=== PATIENT | female | born 1990 | race Caucasian/White ===

== ENCOUNTER 2022-10-03 11:36 | Emergency (ER) | payer MEDICAID ==
[2022-10-03 12:08] VITALS: O2SAT 98
[2022-10-03] MEDS ORDERED: TORAdol 30 mg Injection IM ONE (12:24)
[2022-10-03] MEDS ORDERED: TORAdol 30 mg Injection ONE (12:26)
--- NOTE | 2022-10-03 12:50 | ERPHSYRPT ---
- History of Present Illness Time Seen by Provider: 10/03/22 12:23 Source: patient Exam Limitations: no limitations Patient Subjective Stated Complaint: pt reports a short fall on carpeted stairs approx 2200 last night, states she tripped over a dog that was underfoot. rep orts she landed on her tailbone and her right ribs. reports her tailbone is vert sore today. Triage Nursing Assessment: pt is aox3, afebrile, pupils perrl, resps easy and non labored, radial pulses strong and equal, pt ambulatory with no difficulties, pt skin pink warm dry. no obvious injury or deformity noted. Physician History: 31 years old female presented in the ER after she tripped over her dog last night, lost balance and fell on the stairs hitting her left hip and tailbone against the edge of stairs case. Patient also reports hitting her left chest wall but no difficulty breathing and minimal pain there. Pain is mainly in the coccyx area, more with ambulation and better with resting. No difficulty urination. No numbness tingling or weakness of lower extremities. No difficulty movements at the hips. Occurred: yesterday Reason for Fall: lost balance, tripped Injuries/Pain Location: pelvis, lower extremity Loss of Consciousness: no loss of consciousness Quality: sharpness Severity of Pain-Max: moderate Severity of Pain-Current: moderate Modifying Factors: Improves With: immobilization. Worsens With: movement Associated Symptoms (Fall): extremity injury, No ringing in ears, No trouble walking Allergies/Adverse Reactions: No Known Drug Allergies Allergy (Unverified 10/03/22 12:08) Home Medications: Omeprazole Magnesium 40 mg PO DAILY 10/03/22 [History] Hx Tetanus, Diphtheria Vaccination/Date Given: Yes Hx Influenza Vaccination/Date Given: Yes Hx Pneumococcal Vaccination/Date Given: No Immunizations Up to Date: Yes Travel Risk - International Travel Have you traveled outside of the country in past 3 weeks: No - Coronavirus Screening Are you exhibiting any of the following symptoms?: No Close contact with a COVID-19 positive Pt in past 14-21 Days: No - Vaccine Status Have you recieved a Covid-19 vaccination: Yes 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 Anemia - Past Surgical History Past Surgical History: Yes Musculoskeletal: Orthopedic Surgery Other Surgical History: upper GI scope. R index finger surgery. pilondyal cyst removal - Social History Smoking Status: Never smoker Exposure to second hand smoke: No Drug Use: none Patient Lives Alone: No - Female History Hx Last Menstrual Period: 09/14/22 Hx Now: (unkn) - Nursing Vital Signs Nursing Vital Signs: Initial Vital Signs Temperature 98.1 F 10/03/22 11:54 Pulse Rate 73 10/03/22 11:54 Respiratory Rate 18 10/03/22 11:54 Blood Pressure 115/53 10/03/22 11:54 O2 Sat by Pulse Oximetry 98 10/03/22 11:54 Pain Scale Pain Intensity 10 - [place] Coma Score Best Eye Response (Nae): (4) open spontaneously Best Verbal Response (Nae): (5) oriented Best Motor Response ([place]): (6) obeys commands Nae Total: 15 - Physical Exam General Appearance: no apparent distress, alert Head Injury: no evidence of injury Eye Exam: PERRL/EOMI, eyes nml inspection ENT Exam: airway nml, No evidence of ENT injury Neck Exam: supple, trachea midline, full range of motion, normal alignment Respiratory/Chest Exam: normal breath sounds, respiratory distress, No chest tenderness Cardiovascular Exam: normal heart sounds, regular rate/rhythm Back Exam: normal inspection, normal range of motion, point tenderness (Toxic area) Extremity Exam: normal inspection, normal range of motion, capillary refill <3 sec Neurologic Exam: alert, oriented x 3, cooperative, home care specialist II-XII nml as tested, normal mood/affect, nml cerebellar function, nml station & gait, sensation nml, No motor deficits Skin Exam: normal color SpO2 Interpretation: normal SpO2: 98 O2 Delivery: Room Air Ordered Tests: Active Orders 24 hr Category Date Time Status SACRUM AND COCCYX Stat Exams 10/03/22 12:24 Taken Medication Summary Discontinued Medications Generic Name Dose Route Start Last Admin Trade Name Freq PRN Reason Stop Dose Admin Ketorolac Tromethamine 30 mg 10/03/22 12:24 10/03/22 12:26 Ketorolac Tromethamine 30 Mg/Ml Inj IM 10/03/22 12:25 30 mg STAT ONE Administration Ketorolac Tromethamine Confirm 10/03/22 12:26 Ketorolac Tromethamine 30 Mg/Ml Inj Administered 10/03/22 12:27 Dose 30 mg .ROUTE .ST[facility]-MED ONE - Progress Progress: improved, pain not gone completely Progress Note: 10/03/22 12:50 31 years old female presented in the ER after she tripped over her dog last night, lost balance and fell on the stairs hitting her left hip and tailbone against the edge of stairs case. Patient also reports hitting her left chest wall but no difficulty breathing and minimal pain there. Pain is mainly in the coccyx area, more with ambulation and better with resting. No difficulty urination. No numbness tingling or weakness of lower extremities. No difficulty movements at the hips. We will give her Toradol for symptomatic relief and obtain imaging. 10/03/22 13:41 Patient is feeling much better on reevaluation. X-ray sacrum/coccyx reveal some questionable fracture coccyx reviewed by me, official report is pending. Recommended rest, avoiding exertional activities and pain medication and outpatient follow-up. Discussed signs symptoms of worsening needing return to ER which she seems understanding. Counseled pt/family regarding: diagnosis, need for follow-up, rad results Medical Desision Making - Diagnostic Testing Diagnostic test were ordered, analyzed, and reviewed by me: Yes Radiological Interpretation: Interpreted by me, Reviewed by me - Departure Departure Disposition: Home Clinical Impression: Contusion of coccyx, Fall Condition: Stable Critical Care Time: No Referrals: DOCTOR,NO FAMILY [Primary Care Provider] - Follow up/PCP as directed MALINA - ELI FLETCHER NP [NON-STAFF PHY W/O PRIVILEGES] - Follow up/PCP as directed (1-2 days for reevaluation) Instructions: Coccyx Fracture (DC), Coccyx Injury (DC) Additional Instructions: Take Tylenol/ibuprofen as needed. Follow-up with orthopedics/primary care for reevaluation early next week. Avoid exertional activities. Return to ER for any worsening. Prescriptions: Ibuprofen 600 mg PO Q6HPRN PRN 10 Days #20 tablet PRN Reason: Pain
[2022-10-03] MEDS ORDERED: NORCO 5/325 MG PO ONE (13:43)
[2022-10-03] MEDS ORDERED: NORCO 5/325 MG ONE (13:48)
[2022-10-03 14:01] VITALS: BP 120/68; PULSE 70
--- NOTE | 2022-10-03 19:12 | XRAY ---
Indication: Pain following fall. Comparison: None 3 view sacrum/coccyx demonstrates a few pelvic phleboliths. No other bony, articular, or soft tissue abnormalities.
== END 2022-10-03 14:02 | disposition home or self-care (01) ==
LOC: ED 11:36
DX: S39.82XA Other specified injuries of lower back, initial encounter (principal); W10.9XXA Fall (on) (from) unspecified stairs and steps, initial encounter; M53.3 Sacrococcygeal disorders, not elsewhere classified
CPT/HCPCS: 72220; 96372; 99283; J1885; A9270-GY

== ENCOUNTER 2022-10-14 11:02 | Emergency (ER) | payer MEDICAID ==
--- NOTE | 2022-10-14 11:09 | ERPHSYRPT ---
- History of Present Illness Time Seen by Provider: 10/14/22 11:09 Source: patient Exam Limitations: no limitations Physician History: This is an overweight 31-year-old white female who was seen 11 days ago in our emergency department secondary to a fall on her stairway. X-ray of her sacrum and coccyx did not reveal any acute fracture or dislocation. This morning, on the same stairway, she slipped and fell onto her sacrum and coccyx again as well as her right forearm and left wrist. There are abrasions in each of these areas. She is able to ambulate. She did not hit her head. She has no headache she has no neck pain she has no back pain. She has no chest pain. She has no shortness of breath. She has no abdominal pain. Occurred: this morning Reason for Fall: slipped Injuries/Pain Location: upper extremity (Right forearm and the left wrist) Loss of Consciousness: no loss of consciousness Quality: aching Severity of Pain-Max: mild (To moderate) Severity of Pain-Current: mild (To moderate) Modifying Factors: Improves With: movement Associated Symptoms (Fall): denies symptoms Allergies/Adverse Reactions: No Known Drug Allergies Allergy (Verified 10/14/22 11:05) Home Medications: Omeprazole Magnesium 40 mg PO DAILY 10/03/22 [History] Hx Tetanus, Diphtheria Vaccination/Date Given: Yes Hx Influenza Vaccination/Date Given: Yes Hx Pneumococcal Vaccination/Date Given: No Travel Risk - International Travel Have you traveled outside of the country in past 3 weeks: No - Coronavirus Screening Are you exhibiting any of the following symptoms?: No Close contact with a COVID-19 positive Pt in past 14-21 Days: No - Vaccine Status Have you recieved a Covid-19 vaccination: Yes 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 Has tenderness left wrist and buttock region) Skin: Other (Abrasion to right forearm) Neurological: No Symptoms Psychological: No Symptoms Endocrine: No Symptoms Hematologic/Lymphatic: No Symptoms Immunological/Allergic: No Symptoms All Other Systems: Reviewed and Negative - Past Medical History Pertinent Past Medical History: Yes GI Medical History: GERD Psycho-Social History: Depression Other Medical History: PCOS infertility. Anemia - Past Surgical History Past Surgical History: Yes Musculoskeletal: Orthopedic Surgery Other Surgical History: upper GI scope. R index finger surgery. pilondyal cyst removal - Social History Smoking Status: Never smoker Exposure to second hand smoke: No Drug Use: none Patient Lives Alone: No - Nursing Vital Signs Nursing Vital Signs: Initial Vital Signs Temperature 99 F 10/14/22 11:07 Pulse Rate 71 10/14/22 11:07 Respiratory Rate 14 10/14/22 11:07 Blood Pressure 101/64 10/14/22 11:07 O2 Sat by Pulse Oximetry 100 10/14/22 11:07 Pain Scale Pain Intensity 8 - Nae Coma Score Best Eye Response ([place]): (4) open spontaneously Best Verbal Response (Nae): (5) oriented Best Motor Response ([place]): (6) obeys commands [place] Total: 15 - Physical Exam General Appearance: no apparent distress, alert, anxiety, obese Head Injury: no evidence of injury Eye Exam: PERRL/EOMI, eyes nml inspection ENT Exam: nml ext.inspection Neck Exam: supple, trachea midline, full range of motion, normal alignment, normal inspection Respiratory/Chest Exam: normal breath sounds, No chest tenderness, No respiratory distress, No ecchymosis, No crepitus Cardiovascular Exam: normal heart sounds, regular rate/rhythm Gastrointestinal Exam: soft, normal bowel sounds, No tenderness Rectal Exam: not done Back Exam: normal inspection, normal range of motion, No CVA tenderness, No vertebral tenderness Extremity Exam: normal range of motion, tenderness (Right forearm with skin abrasion, left wrist, sacrum and coccyx tenderness. All without deformity) Neurologic Exam: alert, oriented x 3, cooperative, bull wheel worker II-XII nml as tested, normal mood/affect, nml cerebellar function, nml station & gait, sensation nml Skin Exam: abrasion (Superficial right forearm) SpO2 Interpretation: normal O2 Delivery: Room Air - Course Nursing assessment & vital signs reviewed: Yes Ordered Tests: Active Orders 24 hr Category Date Time Status FOREARM Stat Exams 10/14/22 11:20 Completed SACRUM AND COCCYX Stat Exams 10/14/22 11:19 Completed WRIST (MIN 3 VIEWS) Stat Exams 10/14/22 11:20 Completed - Progress Progress Note: 10/14/22 12:10 This patient's medical issue is 1 of low to moderate complexity. The level of complexity and the work-up performed is based on review of the patient's past medical history, review of the patient's medication list, review of the patient's drug allergy list, review of the patient's prior radiographic studies, history present illness and physical findings on examination. This patient is to undergo x-ray of the patient's right forearm, left wrist and repeat x-ray of the patient's sacrum and coccyx. The radiologist will interpret the studies and I will review the impression. 10/14/22 12:11 10/14/22 12:33 All the x-rays below were interpreted by the radiologist and I reviewed the impression. X-ray of left wrist shows no acute fracture or dislocation. X-ray of right forearm shows no acute fracture or dislocation. X-ray of sacrum and coccyx shows no acute fracture or dislocation. Counseled pt/family regarding: diagnosis, need for follow-up, rad results Medical Desision Making - Diagnostic Testing Radiological Interpretation: Reviewed by me, Teleradiologist Report - Risk of complications Minimal Risk: Minimal risk of morbidity - Departure Departure Disposition: Home Clinical Impression: Fall with no significant injury, Skin abrasion, Contusion Condition: Stable Critical Care Time: No Referrals: DOCTOR,NO FAMILY [Primary Care Provider] - Follow up/PCP as directed Additional Instructions: Use Tylenol and ibuprofen for pain control. Ice pack 3 times a day to all tende r areas for the next 48 hours. Keep the abrasion sites clean daily with soap and water. May apply thin layer of antibiotic ointment to abrasion sites. Call your primary care physician later today to make arrangements for follow-up appointment for reexamination.
[2022-10-14 11:15] VITALS: O2SAT 100
--- NOTE | 2022-10-14 12:20 | XRAY ---
Indication: Status post fall. Comparison: None 3 view left wrist demonstrates normal bones, articulation, and soft tissues.
--- NOTE | 2022-10-14 12:20 | XRAY ---
Indication: Status post fall. Comparison: October 03, 2022 3 view sacrum/coccyx again demonstrates normal bones, articulation, and soft tissues.
--- NOTE | 2022-10-14 12:22 | XRAY ---
Indication: Status post fall. Comparison: None 2 view right forearm demonstrates normal bones, articulation, and soft tissues.
[2022-10-14 12:45] VITALS: BP 93/49; PULSE 70
== END 2022-10-14 12:46 | disposition home or self-care (01) ==
LOC: ED 11:02
DX: S30.0XXA Contusion of lower back and pelvis, initial encounter (principal); S60.212A Contusion of left wrist, initial encounter; S50.811A Abrasion of right forearm, initial encounter; W10.9XXA Fall (on) (from) unspecified stairs and steps, initial encounter
CPT/HCPCS: 72220; 73090; 73110; 99283

== ENCOUNTER 2023-10-31 17:30 | Emergency (ER) | payer OTHER ==
[2023-10-31 17:45] VITALS: TEMP 97.4
--- NOTE | 2023-10-31 17:46 | ERPHSYRPT ---
<BURT BHAKTA - Last Filed: 10/31/23 19:10> - History of Present Illness Time Seen by Provider: 10/31/23 17:44 Allergies/Adverse Reactions: No Known Drug Allergies Allergy (Verified 10/31/23 17:33) Home Medications: Omeprazole Magnesium 40 mg PO DAILY 10/03/22 [History] - Progress Progress Note: 10/31/23 19:10 Patient care transferred to sd at shift change as a 7 PM). Patient no longer has chest pain. Holter monitor is being placed on this patient. Dr. Marquez states that if the TSH in this patient is normal, the patient can be discharged to home. Medical Desision Making - Independent Historian Additional History obtained from: Family - Diagnostic Testing Diagnostic test were ordered, analyzed, and reviewed by me: Yes - Risk of complications Low Risk: Low risk of morbidity from additional dx testing or treatment - Departure Departure Disposition: Home Clinical Impression: Chest pain, Anxiety Condition: Good Critical Care Time: No Referrals: MARSHA MAR DO [Primary Care Provider] - Follow up/PCP as directed Instructions: Chest Pain (DC) Additional Instructions: Continue the Holter monitor as discussed/planned. Follow-up as directed to your primary care provider tomorrow, 11/01/2023, by phone, to make arranges for follow-up appointment for further evaluation and management and to be evaluated in the next 3 to 5 days. <JHONNY MARQUEZ - Last Filed: 11/02/23 20:28> - History of Present Illness Historian: patient Exam Limitations: no limitations Physician History: The patient, with a history of anxiety and currently on low estrogen control, presents with chest pain that started four days ago. They describe the pain as a sensation of 'thick books' stacked on their chest, primarily on the left side, radiating up to the shoulder and occasionally to the shoulder blade. The pain has been consistent for the past three days and seems to worsen when lying down at night. Accompanying the chest pain, the patient has been exp eriencing periods of insomnia for the past three days. In addition to chest pain, the patient reports experiencing palpitations approximately once a month, which have become more frequent over the past year. These palpitations are described as sharp and painful. The patient also reports occasional dizziness but denies nausea, vomiting, or diarrhea. Upon exertion, such as climbing stairs, the patient experiences shortness of breath. They deny personal history of diabetes, hypertension, or cholesterol issues, but these conditions are present in their family history. The patient's current medication regimen includes Aprazol, low estrogen control, B Contacts as a liquid, [place], magnesium sucrate or sulfrate, zinc, and vitamin D. They deny smoking and have no history of blood clots. Timing/Duration: day(s) (3) Activities at Onset: rest Quality: pressure Location: substernal Chest Pain Radiation: arm (left shoulder) Severity of Pain-Max: severe Severity of Pain-Current: moderate Modifying Factors: Worsens With: exertion, lying down Associated Symptoms: palpitations, shortness of breath, No nausea, No vomiting, No heartburn, No abdominal pain, No cough, No hurts to breathe, No diaphoresis, No chills, No fever, No edema Prior Chest Pain/Cardiac Workup: echocardiography Nitro Today/Relief: no nitro taken today Aspirin Treatment Today: no aspirin today Hx Tetanus, Diphtheria Vaccination/Date Given: Yes Hx Influenza Vaccination/Date Given: Yes Hx Pneumococcal Vaccination/Date Given: No - Review of Systems All Other Systems: Reviewed and Negative - Past Medical History Pertinent Past Medical History: Yes GI Medical History: GERD Psycho-Social History: Depression Other Medical History: PCOS infertility. Anemia - Past Surgical History Past Surgical History: Yes Musculoskeletal: Orthopedic Surgery Other Surgical History: upper GI scope. R index finger surgery. pilondyal cyst removal - Social History Smoking Status: Never smoker Exposure to second hand smoke: No Drug Use: none Patient Lives Alone: No - Nursing Vital Signs Nursing Vital Signs: Initial Vital Signs Pulse Rate 75 10/31/23 17:39 Respiratory Rate 16 10/31/23 17:39 Blood Pressure 103/52 10/31/23 17:39 O2 Sat by Pulse Oximetry 98 10/31/23 17:39 Pain Scale Pain Intensity 4 - Physical Exam General Appearance: no apparent distress, anxiety Eye Exam: eyes nml inspection Ears, Nose, Throat Exam: normal ENT inspection Neck Exam: normal inspection, supple, full range of motion Respiratory Exam: normal breath sounds, lungs clear, airway intact, No respiratory distress Cardiovascular Exam: regular rate/rhythm, normal heart sounds, capillary refill <2 sec, No edema Gastrointestinal/Abdomen Exam: soft, No tenderness, No distention, No mass, No guarding, No rebound Back Exam: normal inspection Extremity Exam: No swelling, No tenderness Neurologic Exam: alert, oriented x 3, cooperative Skin Exam: normal color, warm, dry SpO2 Interpretation: normal O2 Delivery: Room Air - Course Nursing assessment & vital signs reviewed: Yes EKG Interpreted by Me: RATE (77), Sinus Rhythm, NORMAL AXIS, NORMAL INTERVALS, NORMAL QRS, NORMAL ST-T - Radiology Exams Chest X-ray Interpretation: Interpreted by me, Negative Ordered Tests: Medication Summary Discontinued Medications Generic Name Dose Route Start Last Admin Trade Name Freq PRN Reason Stop Dose Admin Sodium Chloride 1,000 mls @ 999 mls/hr 10/31/23 17:51 10/31/23 19:16 Sodium Chloride 0.9% 1000 Ml IV 10/31/23 18:51 Infused .Q1H1M STA Infusion Sodium Chloride Confirm 10/31/23 17:55 Sodium Chloride 0.9% 1000 Ml Administered 10/31/23 17:56 Dose 1,000 mls @ ud .ROUTE .[facility]-MED ONE Lab/Rad Data: Laboratory Result Diagrams 10/31/23 17:35 10/31/23 17:35 Laboratory Results 10/31/23 10/31/23 10/31/23 Range/Units 17:35 17:35 17:35 WBC (3.98-10.04) x10^3/uL RBC (3.93-5.22) x10^6/uL Hgb (11.2-15.7) g/dL Hct (34.1-44.9) % MCV (79.4-94.8) fL MCH (25.6-32.2) pg MCHC (32.2-35.5) g/dL RDW (11.7-14.4) % Plt Count (182-369) x10^3/uL MPV (9.4-12.3) fL Gran % (34.0-71.1) % Immature Gran % (Auto) (0.001-0.429) % Nucleat RBC Rel Count (0.00-0.2) % Eos # (Auto) (0.04-0.36) x10^3/uL Immature Gran # (Auto) (0.001-0.031) x10^3u/L Absolute Lymphs (auto) (1.18-3.74) x10^3/uL Absolute Monos (auto) (0.24-0.86) x10^3/uL Absolute Nucleated RBC (0.00-0.012) x10^3u/L Lymphocytes % (19.3-51.7) % Monocytes % (4.7-12.5) % Eosinophils % (0.7-5.8) % Basophils % (0.1-1.2) % Absolute Granulocytes (1.56-6.13) x10^3/uL Basophils # (0.01-0.08) x10^3/uL PT (9.4-12.5) SECONDS INR (0.8-3.0) APTT (25.1-36.5) SECONDS D-Dimer (0.0-0.50) mg/L Sodium (135-145) mmol/L Potassium (3.5-5.1) mmol/L Chloride (98-107) mmol/L Carbon Dioxide (22-30) mmol/L Anion Gap (5-15) MEQ/L BUN (7-17) mg/dL Creatinine (0.52-1.04) mg/dL Estimated GFR ML/MIN Glucose (74-106) mg/dL Calcium (8.4-10.2) mg/dL Total Bilirubin (0.2-1.3) mg/dL AST (14-36) U/L ALT (0-35) U/L Alkaline Phosphatase (38-126) U/L Troponin I < 0.012 (0.000-0.033) ng/mL Serum Total Protein (6.3-8.2) g/dL Albumin (3.5-5.0) g/dL TSH 3rd Generation 2.223 (0.470-4.680) mIU/L Serum HCG, Qual NEGATIVE (NEGATIVE) 10/31/23 10/31/23 10/31/23 Range/Units 17:35 17:35 17:35 WBC 9.0 (3.98-10.04) x10^3/uL RBC 4.60 (3.93-5.22) x10^6/uL Hgb 12.7 (11.2-15.7) g/dL Hct 39.3 (34.1-44.9) % MCV 85.4 (79.4-94.8) fL MCH 27.6 (25.6-32.2) pg MCHC 32.3 (32.2-35.5) g/dL RDW 12.5 (11.7-14.4) % Plt Count 268 (182-369) x10^3/uL MPV 10.3 (9.4-12.3) fL Gran % 71.1 (34.0-71.1) % Immature Gran % (Auto) 0.3 (0.001-0.429) % Nucleat RBC Rel Count 0.0 (0.00-0.2) % Eos # (Auto) 0.10 (0.04-0.36) x10^3/uL Immature Gran # (Auto) 0.03 (0.001-0.031) x10^3u/L Absolute Lymphs (auto) 1.84 (1.18-3.74) x10^3/uL Absolute Monos (auto) 0.60 (0.24-0.86) x10^3/uL Absolute Nucleated RBC 0.00 (0.00-0.012) x10^3u/L Lymphocytes % 20.6 (19.3-51.7) % Monocytes % 6.7 (4.7-12.5) % Eosinophils % 1.1 (0.7-5.8) % Basophils % 0.2 (0.1-1.2) % Absolute Granulocytes 6.36 H (1.56-6.13) x10^3/uL Basophils # 0.02 (0.01-0.08) x10^3/uL PT 9.4 (9.4-12.5) SECONDS INR 0.85 (0.8-3.0) APTT 26.0 (25.1-36.5) SECONDS D-Dimer 0.23 (0.0-0.50) mg/L Sodium 138 (135-145) mmol/L Potassium 3.7 (3.5-5.1) mmol/L Chloride 103 (98-107) mmol/L Carbon Dioxide 27 (22-30) mmol/L Anion Gap 12.4 (5-15) MEQ/L BUN 14 (7-17) mg/dL Creatinine 0.66 (0.52-1.04) mg/dL Estimated GFR 119.5 ML/MIN Glucose 100 (74-106) mg/dL Calcium 9.7 (8.4-10.2) mg/dL Total Bilirubin 0.30 (0.2-1.3) mg/dL AST 26 (14-36) U/L ALT 17 (0-35) U/L Alkaline Phosphatase 73 (38-126) U/L Troponin I (0.000-0.033) ng/mL Serum Total Protein 7.8 (6.3-8.2) g/dL Albumin 4.5 (3.5-5.0) g/dL TSH 3rd Generation (0.470-4.680) mIU/L Serum HCG, Qual (NEGATIVE) Echocardiogram from 10/21/2023 shows mild mitral regurgitation, mild to moderate tricuspid regurgitation, mild pulmonary hypertension, trace amount of pulmonic regurgitation, mild left atrial dilation, normal contractility of left ventricle. - Progress Progress: improved Air Movement: good Blood Culture(s) Obtained: No Antibiotics given: No Counseled pt/family regarding: lab results, diagnosis, need for follow-up, rad results - Departure Departure Disposition: Home Critical Care Time: No
[2023-10-31] MEDS ORDERED: Sodium Chloride 0.9% 1000 ML 1,000 ML ONE (17:55)
[2023-10-31] MEDS: Sodium Chloride 0.9% 1000 ML 1,000 ML IV STA (17:59)
[2023-10-31 18:11] LABS: Absolute Neutrophil Ct (ANC) 6.36 x10^3/uL (1.56-6.13); BASOPHIL % 0.2 % (0.1-1.2); Basophil (Absolute #) 0.02 x10^3/uL (0.01-0.08); Eosinophil % 1.1 % (0.7-5.8); Hematocrit 39.3 % (34.1-44.9); Hemoglobin 12.7 g/dL (11.2-15.7); IMMATURE GRAN # 0.03 x10^3u/L (0.001-0.031); IMMATURE GRAN % 0.3 % (0.001-0.429); Lymphocyte (Absolute #) 1.84 x10^3/uL (1.18-3.74); Lymphocytes % 20.6 % (19.3-51.7); Mean Cell Volume 85.4 fL (79.4-94.8); Mean Corpuscular Hemoglobin 27.6 pg (25.6-32.2); Mean Corpuscular Hgb Concent. 32.3 g/dL (32.2-35.5); Mean Platelet Volume 10.3 fL (9.4-12.3); Monocytes % 6.7 % (4.7-12.5); Neutrophil % 71.1 % (34.0-71.1); Platelet Count 268 x10^3/uL (182-369); Red Cell Distribution Width 12.5 % (11.7-14.4)
[2023-10-31 18:24] LABS: HCG SERUM TEST NEGATIVE (NEGATIVE)
[2023-10-31 18:25] LABS: ALBUMIN 4.5 g/dL (3.5-5.0); ANION GAP 12.4 MEQ/L (5-15); BILIRUBIN,TOTAL 0.3 mg/dL (0.2-1.3); Calcium 9.7 mg/dL (8.4-10.2); Creatinine 1 0.66 mg/dL (0.52-1.04); EST GLOMERULAR FILTRATION RATE 119.5 ML/MIN; Potassium 3.7 mmol/L (3.5-5.1); Total Protein 7.8 g/dL (6.3-8.2)
[2023-10-31 18:27] LABS: D-DIMER QUANTITATIVE 0.23 mg/L (0.0-0.50); INR 0.85 (0.8-3.0); PROTIME 9.4 SECONDS (9.4-12.5)
[2023-10-31 18:41] VITALS: BP 93/47; PULSE 66; RESP 23; O2SAT 99
--- NOTE | 2023-11-01 08:39 | XRAY ---
Indication: Chest pain. Comparison: None Portable chest demonstrates normal heart, lungs, and bony thorax.
== END 2023-10-31 19:44 | disposition home or self-care (01) ==
LOC: ED 17:30
DX: R07.9 Chest pain, unspecified (principal); F41.9 Anxiety disorder, unspecified; Z79.899 Other long term (current) drug therapy
CPT/HCPCS: 36415; 71045; 80053; 84443; 84484; 84703; 85025; 85379; 85610; 85730; 93005; 93041; 93225; 94760; 96374; 99284

== ENCOUNTER 2024-06-23 14:52 | Emergency (ER) | payer OTHER ==
[2024-06-23 15:15] LABS: Absolute Neutrophil Ct (ANC) 4.13 x10^3/uL (1.56-6.13); BASOPHIL % 0.3 % (0.1-1.2); Basophil (Absolute #) 0.02 x10^3/uL (0.01-0.08); Eosinophil % 1.4 % (0.7-5.8); Eosinophil (Absolute #) 0.09 x10^3/uL (0.04-0.36); Hematocrit 38.5 % (34.1-44.9); Hemoglobin 12.3 g/dL (11.2-15.7); IMMATURE GRAN # 0.02 x10^3u/L (0.001-0.031); IMMATURE GRAN % 0.3 % (0.001-0.429); Lymphocyte (Absolute #) 1.59 x10^3/uL (1.18-3.74); Mean Cell Volume 86.3 fL (79.4-94.8); Mean Corpuscular Hemoglobin 27.6 pg (25.6-32.2); Mean Corpuscular Hgb Concent. 31.9 g/dL (32.2-35.5); Monocytes % 7.9 % (4.7-12.5); Neutrophil % 65.1 % (34.0-71.1); Platelet Count 233 x10^3/uL (182-369); Red Blood Count 4.46 x10^6/uL (3.93-5.22); Red Cell Distribution Width 11.9 % (11.7-14.4); White Blood Count 6.4 x10^3/uL (3.98-10.04)
--- NOTE | 2024-06-23 15:15 | ERPHSYRPT ---
- History of Present Illness Time Seen by Provider: 06/23/24 15:11 Historian: patient Exam Limitations: no limitations Patient Subjective Stated Complaint: C/O abdominal pain since Tuesday this becoming worse and more constant. Denies vomiting and fever but has been naus eated with some diarrhea. Triage Nursing Assessment: Patient ambulated back to ER. She is alert and oriented. S/S of pain present; grimacing and gaurding left upper abdomen. No SOB. Skin tone normal. IRAM WNL. Physician History: Patient is 33-year-old female without any significant past medical history except for polycystic ovarian syndrome but with regular menstrual cycles started having a generalized abdominal pain 2 days ago but today it is more concentrated on left lower quadrant and left upper quadrant associated with nausea and diarrhea. Patient denies any fever or chills. Patient is not able to eat. Timing/Duration: day(s) (3 days) Quality: cramping Abdominal Pain Onset Location: LUQ, LLQ Pain Radiation: no radiation Severity of Pain-Max: moderate Severity of Pain-Current: moderate Modifying Factors: Improves With: nothing Associated Symptoms: diarrhea, loss of appetite, nausea, No fever/chills Previous symptoms: no prior history Body Map: 1 - pain Allergies/Adverse Reactions: No Known Drug Allergies Allergy (Verified 06/23/24 14:56) Home Medications: Omeprazole Magnesium 20 mg PO DAILY 10/03/22 [History] Multivitamin 1 tab PO DAILY 06/23/24 [History] Hx Tetanus, Diphtheria Vaccination/Date Given: Yes Hx Influenza Vaccination/Date Given: No Hx Pneumococcal Vaccination/Date Given: No Immunizations Up to Date: Yes Travel Risk - International Travel Have you traveled outside of the country in past 3 weeks: No - Emerging Infectious Disease Are you exhibiting symptoms associated with any current EIDs: Yes Symptoms: Abdominal Pain, Diarrhea, Headaches/Body Aches/ - Review of Systems Constitutional: No Fever, No Chills Eyes: No Symptoms Ears, Nose, & Throat: No Symptoms Respiratory: No Cough, No Dyspnea Cardiac: No Chest Pain, No Edema, No Syncope Abdominal/Gastrointestinal: Abdominal Pain, Nausea, Diarrhea, No Vomiting Genitourinary Symptoms: No Dysuria Musculoskeletal: No Back Pain, No Neck Pain Skin: No Rash Neurological: No Dizziness, No Focal Weakness, No Sensory Changes Psychological: No Symptoms Endocrine: No Symptoms All Other Systems: Reviewed and Negative - Past Medical History Pertinent Past Medical History: Yes GI Medical History: GERD Psycho-Social History: Depression Other Medical History: PCOS, infertility, Anemia - Past Surgical History Past Surgical History: Yes Musculoskeletal: Orthopedic Surgery Other Surgical History: upper GI scope, R index finger surgery, pilondyal cyst removal - Female History Hx Last Menstrual Period: 7 days ago Hx Now: No - Social History Smoking Status: Never smoker Exposure to second hand smoke: No Drug Use: none - Social Determinants of Health Will the patient participate in the screening: Yes Do you worry about a steady place to live?: No Do you have any problems with any of the following?: No known problems In the past 12 months,have you had to go without utilities?: No Transportation Issues: No Has anyone in your support network made you feel unsafe?: No Have you or anyone in your house had to go w/o enough food: No - Nursing Vital Signs Nursing Vital Signs: Initial Vital Signs Temperature 97.5 F 06/23/24 14:57 Pulse Rate 87 06/23/24 14:57 Respiratory Rate 16 06/23/24 14:57 Blood Pressure 99/70 06/23/24 14:57 O2 Sat by Pulse Oximetry 98 06/23/24 14:57 Pain Scale Pain Intensity 0 - Physical Exam General Appearance: no apparent distress, alert Eye Exam: PERRL/EOMI, eyes nml inspection Ears, Nose, Throat Exam: normal ENT inspection, pharynx normal, moist mucous membranes Neck Exam: normal inspection, non-tender, supple, full range of motion Respiratory Exam: normal breath sounds, lungs clear, No respiratory distress Cardiovascular Exam: regular rate/rhythm, normal heart sounds Gastrointestinal/Abdomen Exam: tenderness (LLQ), guarding, No distention, No mass, No ecchymosis, No pulsatile mass, No rebound, No organomegaly, No splenomegaly Pelvic Exam: not done Rectal Exam: deferred Back Exam: normal inspection, normal range of motion, No CVA tenderness, No vertebral tenderness Extremity Exam: normal inspection, normal range of motion, pelvis stable Neurologic Exam: alert, oriented x 3, cooperative, normal mood/affect, nml cerebellar function, sensation nml, No motor deficits Skin Exam: normal color, warm, dry SpO2 Interpretation: normal SpO2: 98 O2 Delivery: Room Air - Course Nursing assessment & vital signs reviewed: Yes - CT Exams Abdomen/Pelvis CT Interpretation: Tele-radiologist Report Ordered Tests: Active Orders 24 hr Category Date Time Status IV Insertion STAT Care 06/23/24 15:04 Active NPO (ED) STAT Care 06/23/24 15:04 Active ABDOMEN AND PELVIS W CONTRAST [CT] Stat Exams 06/23/24 15:05 Completed AMYLASE Stat Lab 06/23/24 Completed CBC W DIFF Stat Lab 06/23/24 Completed CMP Stat Lab 06/23/24 Completed HCG QUALITATIVE, SERUM Stat Lab 06/23/24 Completed LIPASE Stat Lab 06/23/24 Completed UA W/RFX UR CULTURE Stat Lab 06/23/24 16:08 Completed Medication Summary Discontinued Medications Generic Name Dose Route Start Last Admin Trade Name Freq PRN Reason Stop Dose Admin Sodium Chloride 1,000 mls @ 999 mls/hr 06/23/24 15:04 06/23/24 16:28 Sodium Chloride 0.9% 1000 Ml IV 06/23/24 16:04 Infused .Q1H1M STA Infusion Sodium Chloride Confirm 06/23/24 15:18 Sodium Chloride 0.9% 1000 Ml Administered 06/23/24 15:19 Dose 1,000 mls @ ud .ROUTE .STK-MED ONE Morphine Sulfate 4 mg 06/23/24 15:04 06/23/24 15:25 Morphine Sulfate 4 Mg/Ml Injection IV 06/23/24 15:05 4 mg STAT ONE Administration Morphine Sulfate Confirm 06/23/24 15:18 Morphine Sulfate 4 Mg/Ml Injection Administered 06/23/24 15:19 Dose 4 mg .ROUTE .STK-MED ONE Ondansetron HCl 4 mg 06/23/24 15:04 06/23/24 15:22 Ondansetron Hcl 4 Mg/2 Ml Vial IV 06/23/24 15:05 4 mg STAT ONE Administration Ondansetron HCl Confirm 06/23/24 15:17 Ondansetron Hcl 4 Mg/2 Ml Vial Administered 06/23/24 15:18 Dose 4 mg .ROUTE .STK-MED ONE Pantoprazole Sodium 40 mg 06/23/24 15:04 06/23/24 15:22 Pantoprazole 40 Mg Vial IV 06/23/24 15:05 40 mg STAT ONE Administration Pantoprazole Sodium Confirm 06/23/24 15:17 Pantoprazole 40 Mg Vial Administered 06/23/24 15:18 Dose 40 mg IV .STK-MED ONE Prochlorperazine Edisylate 5 mg 06/23/24 17:09 06/23/24 17:11 Prochlorperazine Edisylate 10 Mg/2 Ml Vial IV 06/23/24 17:10 5 mg STAT ONE Administration Prochlorperazine Edisylate Confirm 06/23/24 17:10 Prochlorperazine Edisylate 10 Mg/2 Ml Vial Administered 06/23/24 17:11 Dose 10 mg .ROUTE .K-MED ONE Lab/Rad Data: Laboratory Result Diagrams 06/23/24 Unknown 06/23/24 Unknown Laboratory Results 06/23/24 06/23/24 06/23/24 Range/Units Unknown Unknown Unknown WBC 6.4 (3.98-10.04) x10^3/uL RBC 4.46 (3.93-5.22) x10^6/uL Hgb 12.3 (11.2-15.7) g/dL Hct 38.5 (34.1-44.9) % MCV 86.3 (79.4-94.8) fL MCH 27.6 (25.6-32.2) pg MCHC 31.9 L (32.2-35.5) g/dL RDW 11.9 (11.7-14.4) % Plt Count 233 (182-369) x10^3/uL MPV 10.0 (9.4-12.3) fL Gran % 65.1 (34.0-71.1) % Immature Gran % (Auto) 0.3 (0.001-0.429) % Nucleat RBC Rel Count 0.0 (0.00-0.2) % Eos # (Auto) 0.09 (0.04-0.36) x10^3/uL Immature Gran # (Auto) 0.02 (0.001-0.031) x10^3u/L Absolute Lymphs (auto) 1.59 (1.18-3.74) x10^3/uL Absolute Monos (auto) 0.50 (0.24-0.86) x10^3/uL Absolute Nucleated RBC 0.00 (0.00-0.012) x10^3u/L Lymphocytes % 25.0 (19.3-51.7) % Monocytes % 7.9 (4.7-12.5) % Eosinophils % 1.4 (0.7-5.8) % Basophils % 0.3 (0.1-1.2) % Absolute Granulocytes 4.13 (1.56-6.13) x10^3/uL Basophils # 0.02 (0.01-0.08) x10^3/uL Sodium 140 (135-145) mmol/L Potassium 3.6 (3.5-5.1) mmol/L Chloride 106 (98-107) mmol/L Carbon Dioxide 21 L (22-30) mmol/L Anion Gap 17.2 H (5-15) MEQ/L BUN 13 (7-17) mg/dL Creatinine 0.78 (0.52-1.04) mg/dL Estimated GFR 103.4 ML/MIN Glucose 91 (74-106) mg/dL Calcium 9.6 (8.4-10.2) mg/dL Total Bilirubin 0.50 (0.2-1.3) mg/dL AST 28 (14-36) U/L ALT 26 (0-35) U/L Alkaline Phosphatase 81 (38-126) U/L Serum Total Protein 7.7 (6.3-8.2) g/dL Albumin 4.7 (3.5-5.0) g/dL Amylase 45 (30-110) U/L Lipase 106 (23-300) U/L Serum HCG, Qual NEGATIVE (NEGATIVE) Urine Color (Yellow) Urine Appearance (Clear) Urine pH (4.6-8.0) Ur Specific [place] (1.005-1.030) Urine Protein (Negative) Urine Glucose (UA) (Negative) mg/dL Urine Ketones (Negative) Urine Blood (Negative) Urine Nitrite (Negative) Urine Bilirubin (Negative) Urine Urobilinogen (0.2) mg/dL Ur Leukocyte Esterase (Negative) U Hyaline Cast (Auto) (0-2) /LPF Urine Microscopic RBC (0-5) /HPF Urine Microscopic WBC (0-5) /HPF Ur Epithelial Cells (None Seen) /HPF Urine Bacteria (None Seen) /HPF Urine Culture Reflexed (NO) 06/23/24 Range/Units 16:08 WBC (3.98-10.04) x10^3/uL RBC (3.93-5.22) x10^6/uL Hgb (11.2-15.7) g/dL Hct (34.1-44.9) % MCV (79.4-94.8) fL MCH (25.6-32.2) pg MCHC (32.2-35.5) g/dL RDW (11.7-14.4) % Plt Count (182-369) x10^3/uL MPV (9.4-12.3) fL Gran % (34.0-71.1) % Immature Gran % (Auto) (0.001-0.429) % Nucleat RBC Rel Count (0.00-0.2) % Eos # (Auto) (0.04-0.36) x10^3/uL Immature Gran # (Auto) (0.001-0.031) x10^3u/L Absolute Lymphs (auto) (1.18-3.74) x10^3/uL Absolute Monos (auto) (0.24-0.86) x10^3/uL Absolute Nucleated RBC (0.00-0.012) x10^3u/L Lymphocytes % (19.3-51.7) % Monocytes % (4.7-12.5) % Eosinophils % (0.7-5.8) % Basophils % (0.1-1.2) % Absolute Granulocytes (1.56-6.13) x10^3/uL Basophils # (0.01-0.08) x10^3/uL Sodium (135-145) mmol/L Potassium (3.5-5.1) mmol/L Chloride (98-107) mmol/L Carbon Dioxide (22-30) mmol/L Anion Gap (5-15) MEQ/L BUN (7-17) mg/dL Creatinine (0.52-1.04) mg/dL Estimated GFR ML/MIN Glucose (74-106) mg/dL Calcium (8.4-10.2) mg/dL Total Bilirubin (0.2-1.3) mg/dL AST (14-36) U/L ALT (0-35) U/L Alkaline Phosphatase (38-126) U/L Serum Total Protein (6.3-8.2) g/dL Albumin (3.5-5.0) g/dL Amylase (30-110) U/L Lipase (23-300) U/L Serum HCG, Qual (NEGATIVE) Urine Color Yellow (Yellow) Urine Appearance Clear (Clear) Urine pH 5.5 (4.6-8.0) Ur Specific [place] >=1.030 A (1.005-1.030) Urine Protein Trace A (Negative) Urine Glucose (UA) Negative (Negative) mg/dL Urine Ketones Trace A (Negative) Urine Blood Negative (Negative) Urine Nitrite Negative (Negative) Urine Bilirubin Negative (Negative) Urine Urobilinogen 0.2 (0.2) mg/dL Ur Leukocyte Esterase Small A (Negative) U Hyaline Cast (Auto) 3-5 A (0-2) /LPF Urine Microscopic RBC 3-5 (0-5) /HPF Urine Microscopic WBC 6-10 A (0-5) /HPF Ur Epithelial Cells Few (None Seen) /HPF Urine Bacteria Few A (None Seen) /HPF Urine Culture Reflexed NO (NO) CT/ABDOMEN AND PELVIS W CONTRAST CLINICAL HISTORY: LLQ abdominal pain COMPARISON: No prior studies available for comparison TECHNIQUE: CT of the abdomen and pelvis was performed with the administration of intravenous contrast (50cc Isovue 370), with the following protocol: axial images with, reconstructed coronal and sagittal images. One of the following dose reduction techniques was utilized for this exam: Automated exposure control, adjustment of the mA and/or kV according to patient size, and use of iterative reconstruction. (CTDI: 13.08 mGy, DLP: 1454.88 mGy*cm) FINDINGS: Abdomen: Liver: Normal in size, shape, and density. No focal lesions, cysts, or masses were identified. Hepatic vasculature and biliary ducts are unremarkable. Gallbladder and Biliary System: The gallbladder is normal in size and shape. No wall thickening, pericholecystic fluid, or gallstones were identified. The common bile duct is normal in caliber without dilation. Pancreas: Pancreatic head, body, and tail are visualized and appear normal in size and density. No pancreatic masses or calcifications were noted. The pancreatic duct is not dilated. Spleen: Normal in size, shape, and density. No splenic lesions or masses were identified. Appendix: The appendix is normal in size without katharine appendiceal fat stranding, and without an appendicolith. No evidence of appendiceal abscess or perforation. Kidneys and Adrenal Glands: Both kidneys are normal in size, shape, and position. Cortical thickness is within normal limits. No renal calculi or hydronephrosis. Adrenal glands are unremarkable with no evidence of masses or hyperplasia. Pelvis: Urinary Bladder: Normal in contour and wall thickness. No intraluminal lesions identified. Uterus: Normal in size and contour. No masses or abnormal thickening. Ovaries: They are well visualized and no gross abnormalities noted. Vagina: Normal in contour and wall thickness. Cervix: No evidence of mass or abnormal thickening. Peritoneal and Retroperitoneal Structures: No free fluid or abnormal fluid collections were identified within the abdomen or pelvis. No lymphadenopathy was noted. Bowel: The visualized bowel loops are normal in caliber and appearance. No evidence of bowel obstruction or wall thickening. Bones and Soft Tissues: Pelvic bones and soft tissues are unremarkable. No fractures or abnormal masses were identified. IMPRESSION: Overall, CT with contrast abdomen and pelvis demonstrate normal findings without evidence of acute intra-abdominal pathology. Clinical correlation is recommended for further evaluation. - Progress Progress: improved Counseled pt/family regarding: lab results, diagnosis, need for follow-up, rad results Medical Desision Making - Diagnostic Testing Diagnostic test were ordered, analyzed, and reviewed by me: Yes Radiological Interpretation: Teleradiologist Report - Risk of complications Minimal Risk: Minimal risk of morbidity - Departure Departure Disposition: Home Clinical Impression: Left lower quadrant abdominal pain Condition: Stable Critical Care Time: No Referrals: MARSHA MAR DO [Primary Care Provider] - Follow up/PCP as directed Instructions: Abdominal pain, Severe Abdominal Pain, Adult (DC) Additional Instructions: Discharge/Care Plan KARINA HARRIS was seen on 06/23/24 in the Emergency Room. The patient was counseled regarding Diagnosis,Lab results, Imaging studies, need for follow up and when to return to the Emergency Room. Prescriptions given: Discharge Note I have spoken with the patient and/or caregivers. I have explained the patient's condition, diagnosis and treatment plan based on the information available to me at this time. I have answered the patient's and/or caregiver's questions and addressed any concerns. The patient and/or caregivers have as good understanding of the patient's diagnosis, condition and treatment plan as can be expected at this point. The vital signs have been stable. The patient's condition is stable and appropriate for discharge from the emergency department. The patient will pursue further outpatient evaluation with the primary care physician or other designated or consulting physician as outlined in the discharge instructions. The patient and/or caregivers are agreeable to this plan of care and follow-up instructions have been explained in detail. The patient and/or caregivers have received these instruction. The patient/and or caregivers are aware that any significant change in condition or worsening of symptoms should prompt an immediate return to this or the closest emergency department or call 911. KARINA HARRIS was seen on 06/23/24 n the Emergency Room. At that time you were treated for an emergent condition, during your visit Laboratory, Radiology and/o r other procedures may have been ordered. It is very important that you follow- up with your Primary Care Physician MARSHA MAR, within the next 24- 48 hours to review your Emergency Room visit and the final results of testing that was ordered. Some test results such as Urine Cultures, Blood Cultures, and other cultures if ordered will not be finalized for 24-48 hours. If you do not have a Primary Care Provider please call the medical records department at [phone] ext [phone] to obtain a copy of your results or you may sign into our patient portal to obtain these results by visiting us @ [email or web address] and completing the following steps: 1. Click on the Patient Portal link 2. Click the Patient Self Enrollment Link to complete the enrollment form and entering your 3. Once the enrollment form is completed you will receive an email with a temporary ID and password at the email address you provided. 4. Next choose a user name and password. Your user name must be at least 4 characters long and your password must be at least 4 characters long. 5. Choose a security question from the list and provide your answer to the question. If you already have signed into the Health Portal you may access your Health Care Information 08/11 by the following steps: 1. Login to our website @ [email or web address] 2. Enter your original user name and password. FAQS The [facility] Health Portal is an online tool that contains your Lab Results, Radiology Reports, Visit History, Discharge Instructions and Health Summary Lab and Radiology Results will not be available for 72 hours on the portal. The Portal is a secure site, passwords are encryted and URLs are re-written so they cannot be copied and pasted. You and authorized family members are the only ones who can access your Portal. Also there is a timeout feature that protects your information if you leave the Portal page open. If you have technical difficulty please use the Contact Us link on the page this will allow you to submit any questions you have regarding the Portal or you may contact the Medical Record Department at [phone]. Prescriptions: Dicyclomine HCl 20 mg [Bentyl 20 mg] 20 mg PO TID #15 tablet Ondansetron ODT 4 MG [Zofran Odt 4 mg] 4 mg PO Q6H PRN PRN #10 tablet PRN Reason: Nausea
[2024-06-23] MEDS ORDERED: PROTONIX 40 MG IV IV ONE (15:17)
[2024-06-23] MEDS ORDERED: Zofran 4 MG/2 ML VIAL ONE (15:17)
[2024-06-23] MEDS ORDERED: Sodium Chloride 0.9% 1000 ML 1,000 ML ONE (15:18)
[2024-06-23] MEDS ORDERED: MORPHINE SULFATE 4 MG INJ ONE (15:18)
[2024-06-23] MEDS: PROTONIX 40 MG IV IV ONE (15:22)
[2024-06-23] MEDS: Zofran 4 MG/2 ML VIAL IV ONE (15:22)
[2024-06-23] MEDS: MORPHINE SULFATE 4 MG INJ IV ONE (15:25)
[2024-06-23] MEDS: Sodium Chloride 0.9% 1000 ML 1,000 ML IV STA (15:26)
[2024-06-23 15:31] LABS: ALBUMIN 4.7 g/dL (3.5-5.0); ANION GAP 17.2 MEQ/L (5-15); BILIRUBIN,TOTAL 0.5 mg/dL (0.2-1.3); Calcium 9.6 mg/dL (8.4-10.2); Creatinine 1 0.78 mg/dL (0.52-1.04); EST GLOMERULAR FILTRATION RATE 103.4 ML/MIN; Potassium 3.6 mmol/L (3.5-5.1); Total Protein 7.7 g/dL (6.3-8.2)
[2024-06-23 15:33] LABS: HCG SERUM TEST NEGATIVE (NEGATIVE)
[2024-06-23 16:39] LABS: Appearance Clear (Clear); Bacteria Few /HPF (None Seen); Bilirubin Negative (Negative); Blood Negative (Negative); Epithelial Cells Few /HPF (None Seen); Glucose, Urine Negative (Negative); Ketones Trace (Negative); Leukocyte Esterase Small (Negative); Nitrite Negative (Negative); Ph 5.5 (4.6-8.0); Protein,Urine Dip Trace (Negative); Specific Gravity >=1.030 (1.005-1.030); Urobilinogen 0.2 mg/dL (0.2)
--- NOTE | 2024-06-23 17:09 | XRAY ---
CLINICAL HISTORY: LLQ abdominal pain COMPARISON: No prior studies available for comparison TECHNIQUE: CT of the abdomen and pelvis was performed with the administration of intravenous contrast (50cc Isovue 370), with the following protocol: axial images with, reconstructed coronal and sagittal images. One of the following dose reduction techniques was utilized for this exam: Automated exposure control, adjustment of the mA and/or kV according to patient size, and use of iterative reconstruction. (CTDI: 13.08 mGy, DLP: 1454.88 mGy*cm) FINDINGS: Abdomen: Liver: Normal in size, shape, and density. No focal lesions, cysts, or masses were identified. Hepatic vasculature and biliary ducts are unremarkable. Gallbladder and Biliary System: The gallbladder is normal in size and shape. No wall thickening, pericholecystic fluid, or gallstones were identified. The common bile duct is normal in caliber without dilation. Pancreas: Pancreatic head, body, and tail are visualized and appear normal in size and density. No pancreatic masses or calcifications were noted. The pancreatic duct is not dilated. Spleen: Normal in size, shape, and density. No splenic lesions or masses were identified. Appendix: The appendix is normal in size without katharine appendiceal fat stranding, and without an appendicolith. No evidence of appendiceal abscess or perforation. Kidneys and Adrenal Glands: Both kidneys are normal in size, shape, and position. Cortical thickness is within normal limits. No renal calculi or hydronephrosis. Adrenal glands are unremarkable with no evidence of masses or hyperplasia. Pelvis: Urinary Bladder: Normal in contour and wall thickness. No intraluminal lesions identified. Uterus: Normal in size and contour. No masses or abnormal thickening. Ovaries: They are well visualized and no gross abnormalities noted. Vagina: Normal in contour and wall thickness. Cervix: No evidence of mass or abnormal thickening. Peritoneal and Retroperitoneal Structures: No free fluid or abnormal fluid collections were identified within the abdomen or pelvis. No lymphadenopathy was noted. Bowel: The visualized bowel loops are normal in caliber and appearance. No evidence of bowel obstruction or wall thickening. Bones and Soft Tissues: Pelvic bones and soft tissues are unremarkable. No fractures or abnormal masses were identified. IMPRESSION: Overall, CT with contrast abdomen and pelvis demonstrate normal findings without evidence of acute intra-abdominal pathology. Clinical correlation is recommended for further evaluation. Electronically Signed by: Eliud Bear MD. (06/23/2024 17:06:45 EST)
[2024-06-23] MEDS ORDERED: Compazine 10 MG/2 ML ONE (17:10)
[2024-06-23] MEDS: Compazine 10 MG/2 ML IV ONE (17:11)
[2024-06-23 17:17] VITALS: TEMP 97.9
[2024-06-23 17:22] VITALS: O2SAT 98
[2024-06-23 17:34] VITALS: BP 106/67; PULSE 70; RESP 17
== END 2024-06-23 17:34 | disposition home or self-care (01) ==
LOC: ED 14:52
DX: R10.32 Left lower quadrant pain (principal); R10.12 Left upper quadrant pain; R11.0 Nausea; R19.7 Diarrhea, unspecified; Z79.899 Other long term (current) drug therapy
CPT/HCPCS: 36415; 74177; 80053; 81001; 82150; 83690; 84703; 85025; 96361; 96374; 96375; 96376; 99284; 99285; J2270; J2405

== ENCOUNTER 2025-02-09 15:43 | Emergency (ER) | payer OTHER ==
[2025-02-09 15:56] VITALS: TEMP 97.2; O2SAT 98
[2025-02-09 16:38] LABS: BASOPHIL % 0.2 % (0.1-1.2); Basophil (Absolute #) 0.02 x10^3/uL (0.01-0.08); Eosinophil (Absolute #) 0.12 x10^3/uL (0.04-0.36); Hematocrit 37.4 % (34.1-44.9); Hemoglobin 12.0 g/dL (11.2-15.7); IMMATURE GRAN # 0.02 x10^3u/L (0.001-0.031); IMMATURE GRAN % 0.2 % (0.001-0.429); Lymphocyte (Absolute #) 1.60 x10^3/uL (1.18-3.74); Mean Corpuscular Hemoglobin 27.6 pg (25.6-32.2); Mean Corpuscular Hgb Concent. 32.1 g/dL (32.2-35.5); Monocyte (Absolute #) 0.73 x10^3/uL (0.24-0.86); NUCLEATED RBC # 0.00 x10^3u/L (0.00-0.012); NUCLEATED RBC % 0.0 % (0.00-0.2); Platelet Count 205 x10^3/uL (182-369); Red Blood Count 4.34 x10^6/uL (3.93-5.22); White Blood Count 9.3 x10^3/uL (3.98-10.04)
[2025-02-09] MEDS ORDERED: TORAdol 30 mg Injection ONE (16:41)
[2025-02-09] MEDS ORDERED: BENADRYL 25 MG CAPSULE ONE (16:42)
[2025-02-09] MEDS ORDERED: Inapsine 5 MG/2 ML ONE (16:42)
[2025-02-09] MEDS: Inapsine 5 MG/2 ML IV ONE (16:45)
[2025-02-09] MEDS: TORAdol 30 mg Injection IV ONE (16:47)
[2025-02-09] MEDS: BENADRYL 25 MG CAPSULE PO ONE (16:48)
[2025-02-09 16:53] LABS: Calcium 9.6 mg/dL (8.4-10.2); Carbon Dioxide 26.0 mmol/L (22-30); Creatinine 1 1.1 mg/dL (0.52-1.04); EST GLOMERULAR FILTRATION RATE 68.0 ML/MIN; Glucose 100.0 mg/dL (74-106); Potassium 3.9 mmol/L (3.5-5.1); SGOT/AST 29.0 U/L (14-36); SGPT/ALT 17.0 U/L (0-35); Total Protein 7.4 g/dL (6.3-8.2)
--- NOTE | 2025-02-09 17:37 | ERPHSYRPT ---
- History of Present Illness Time Seen by Provider: 02/09/25 15:47 Source: patient, family Exam Limitations: no limitations Patient Subjective Stated Complaint: headache off and on for 3 weeks Triage Nursing Assessment: Pt brought to the ER by her , vitals wnl, rates pain as 6/10, pulses normal, skin n/w/d, has seen Dr. Mar and takes Nurteq but it isn't helping now, pt was on Metoprolol for her headaches and had it decreased a couple of weeks ago but it has not improved, nausea, denies vomiting, no difficulty breathing, reports having some visula changes with "black spots", doesn't appear to be in any distress Physician History: Patient is here with headache, frontal, 6 out of 10. Patient states that she has a history of migraines. States that she has never had any head imaging before. States that she was diagnosed with migraines when she was 14 years old. Patient recently has been following with Dr. Mar and taking Nurteq. She also has been on metoprolol the past 3 months for her headaches. However has not had any improvement. Therefore her primary care doctor is slowly tapering off her metoprolol. Patient has no nausea, vomiting or difficulty breathing, chest pain. Patient is taking PO well. Same number of urinations and defecations. The patient has no signs of altered mental status, nuchal rigidity, signs of meningitis. The patient is up-to-date on all vaccinations. Allergies/Adverse Reactions: diphenhydramine [From Benadryl] Allergy (Verified 02/09/25 15:57) Home Medications: Omeprazole Magnesium 20 mg PO DAILY 10/03/22 [History] Multivitamin 1 tab PO DAILY 06/23/24 [History] Escitalopram Oxalate [Lexapro] 10 mg PO HS 02/09/25 [History] Metoprolol Succinate 25 mg Xl* [Toprol-Xl 25MG Tablets] 25 mg PO DAILY 02/09/25 [History] Rimegepant Sulfate [Nurtec Odt] 75 mg SL .AT ONSET OF HEADACH PRN 02/09/25 [History] Spironolactone [Aldactone] 100 mg PO DAILY 02/09/25 [History] Trazodone HCl 50 mg [Desyrel 50 mg] 50 mg PO HS 02/09/25 [History] Hx Tetanus, Diphtheria Vaccination/Date Given: Yes Hx Influenza Vaccination/Date Given: No Hx Pneumococcal Vaccination/Date Given: No Travel Risk - International Travel Have you traveled outside of the country in past 3 weeks: No - Emerging Infectious Disease Are you exhibiting symptoms associated with any current EIDs: No Symptoms: Abdominal Pain, Diarrhea, Headaches/Body Aches/ - Past Medical History Pertinent Past Medical History: Yes Neurological History: Migraines GI Medical History: GERD Psycho-Social History: Depression Other Medical History: PCOS - Past Surgical History Past Surgical History: Yes Neuro Surgical History: No Pertinent History Cardiac: No Pertinent History Respiratory: No Pertinent History Gastrointestinal: Cholecystectomy Genitourinary: No Pertinent History Musculoskeletal: No Pertinent History Female Surgical History: No Pertinent History Other Surgical History: right index finger repair x 2, cholescy - Female History Hx Last Menstrual Period: 3 weeks ago Hx Now: No - Social History Smoking Status: Never smoker Exposure to second hand smoke: No Drug Use: none - Social Determinants of Health Will the patient participate in the screening: Yes Do you worry about a steady place to live?: No Do you have any problems with any of the following?: No known problems In the past 12 months,have you had to go without utilities?: No Transportation Issues: No Has anyone in your support network made you feel unsafe?: No Have you or anyone in your house had to go w/o enough food: No - Nursing Vital Signs Nursing Vital Signs: Initial Vital Signs Temperature 97.2 F 02/09/25 15:51 Pulse Rate 68 02/09/25 15:51 Blood Pressure 111/64 02/09/25 15:51 O2 Sat by Pulse Oximetry 98 02/09/25 15:51 Pain Scale Pain Intensity 4 - Physical Exam SpO2: 98 Comments: 02/09/25 17:36 Review of Systems Constitutional: Negative for fever. HENT: Negative for congestion. Respiratory: Negative for shortness of breath. Cardiovascular: Negative for chest pain. Gastrointestinal: Negative for abdominal pain. Genitourinary: Negative for dysuria. Musculoskeletal: Negative for back pain. Skin: Negative for rash. Neurological: Headache Psychiatric/Behavioral: Negative for behavioral problems. All other systems reviewed and are negative. Physical Exam Vitals signs and nursing note reviewed. Constitutional: Appearance: Patient is well-developed. HENT: Head: Normocephalic and atraumatic. Eyes: Conjunctiva/sclera: Conjunctivae normal. Neck: Musculoskeletal: Normal range of motion. Trachea: No tracheal deviation. Cardiovascular: Rate and Rhythm: Normal rate. Heart sounds normal. Pulmonary: Effort: Pulmonary effort is normal. No respiratory distress. Abdominal: Palpations: Abdomen is soft. Musculoskeletal: General: No deformity. Skin: General: Skin is warm and dry. Neurological/ Psychiatric: Mental Status: Mental status, behavior, interaction with environment is appropriate for patient's age and condition Motor: Patient lifts arms against gravity. Muscle strength and tone are normal Reflexes: Intact major reflexes Sensory: Light touch sensation intact throughout upper and lower extremities Coordination: Rapid alternating movements are intact. Normal [id number] Gait/Stance: Posture is normal, patient is sitting up in bed with normal strength - Course Nursing assessment & vital signs reviewed: Yes Ordered Tests: Active Orders 24 hr Category Date Time Status IV Insertion STAT Care 02/09/25 16:14 Active HEAD WITHOUT CONTRAST [CT] Stat Exams 02/09/25 16:16 Ordered CBC W DIFF Stat Lab 02/09/25 16:30 Completed CMP Stat Lab 02/09/25 16:30 Completed HCG QUALITATIVE, URINE Stat Lab 02/09/25 17:42 Completed LIPASE Stat Lab 02/09/25 16:30 Completed UA W/RFX UR CULTURE Stat Lab 02/09/25 17:39 Completed Medication Summary Discontinued Medications Generic Name Dose Route Start Last Admin Trade Name Freq PRN Reason Stop Dose Admin Diphenhydramine HCl 50 mg 02/09/25 16:15 02/09/25 16:48 Diphenhydramine Hcl 25 Mg Capsule PO 02/09/25 16:16 50 mg STAT ONE Administration Diphenhydramine HCl Confirm 02/09/25 16:42 Diphenhydramine Hcl 25 Mg Capsule Administered 02/09/25 16:43 Dose 50 mg .ROUTE .STK-MED ONE Droperidol 1.25 mg 02/09/25 16:14 02/09/25 16:45 Droperidol 5 Mg/2 Ml Vial IV 02/09/25 16:15 1.25 mg STAT ONE Administration Droperidol Confirm 02/09/25 16:42 Droperidol 5 Mg/2 Ml Vial Administered 02/09/25 16:43 Dose 5 mg .ROUTE .STK-MED ONE Sodium Chloride 1,000 mls @ 999 mls/hr 02/09/25 16:14 02/09/25 16:44 Sodium Chloride 0.9% 1000 Ml IV 02/09/25 17:14 999 mls/hr .Q1H1M STA Administration Sodium Chloride Confirm 02/09/25 16:42 Sodium Chloride 0.9% 1000 Ml Administered 02/09/25 16:43 Dose 1,000 mls @ ud .ROUTE .STK-MED ONE Ketorolac Tromethamine 30 mg 02/09/25 16:14 02/09/25 16:47 Ketorolac Tromethamine 30 Mg/Ml Inj IV 02/09/25 16:15 30 mg STAT ONE Administration Ketorolac Tromethamine Confirm 02/09/25 16:41 Ketorolac Tromethamine 30 Mg/Ml Inj Administered 02/09/25 16:42 Dose 30 mg .ROUTE .STK-MED ONE Lab/Rad Data: Laboratory Result Diagrams 02/09/25 16:30 02/09/25 16:30 Laboratory Results 02/09/25 02/09/25 02/09/25 Range/Units 17:42 17:39 16:30 WBC (3.98-10.04) x10^3/uL RBC (3.93-5.22) x10^6/uL Hgb (11.2-15.7) g/dL Hct (34.1-44.9) % MCV (79.4-94.8) fL MCH (25.6-32.2) pg MCHC (32.2-35.5) g/dL RDW (11.7-14.4) % Plt Count (182-369) x10^3/uL MPV (9.4-12.3) fL Gran % (34.0-71.1) % Immature Gran % (Auto) (0.001-0.429) % Nucleat RBC Rel Count (0.00-0.2) % Eos # (Auto) (0.04-0.36) x10^3/uL Immature Gran # (Auto) (0.001-0.031) x10^3u/L Absolute Lymphs (auto) (1.18-3.74) x10^3/uL Absolute Monos (auto) (0.24-0.86) x10^3/uL Absolute Nucleated RBC (0.00-0.012) x10^3u/L Lymphocytes % (19.3-51.7) % Monocytes % (4.7-12.5) % Eosinophils % (0.7-5.8) % Basophils % (0.1-1.2) % Absolute Granulocytes (1.56-6.13) x10^3/uL Basophils # (0.01-0.08) x10^3/uL Sodium 137 (135-145) mmol/L Potassium 3.9 (3.5-5.1) mmol/L Chloride 104 (98-107) mmol/L Carbon Dioxide 26 (22-30) mmol/L Anion Gap 10.7 (5-15) MEQ/L BUN 17 (7-17) mg/dL Creatinine 1.10 H (0.52-1.04) mg/dL Estimated GFR 68.0 ML/MIN Glucose 100 (74-106) mg/dL Calcium 9.6 (8.4-10.2) mg/dL Total Bilirubin 0.10 L (0.2-1.3) mg/dL AST 29 (14-36) U/L ALT 17 (0-35) U/L Alkaline Phosphatase 78 (38-126) U/L Serum Total Protein 7.4 (6.3-8.2) g/dL Albumin 4.4 (3.5-5.0) g/dL Lipase 88 (23-300) U/L Urine Color Yellow (Yellow) Urine Appearance Clear (Clear) Urine pH 6.5 (4.6-8.0) Ur Specific [place] 1.015 (1.005-1.030) Urine Protein Negative (Negative) Urine Glucose (UA) Negative (Negative) mg/dL Urine Ketones Negative (Negative) Urine Blood Negative (Negative) Urine Nitrite Negative (Negative) Urine Bilirubin Negative (Negative) Urine Urobilinogen 1.0 A (0.2) mg/dL Ur Leukocyte Esterase Negative (Negative) U Hyaline Cast (Auto) NONE SEEN (0-2) /LPF Urine Microscopic RBC 0-2 (0-5) /HPF Urine Microscopic WBC 0-2 (0-5) /HPF Ur Epithelial Cells Rare (None Seen) /HPF Urine Bacteria None Seen (None Seen) /HPF Urine Culture Reflexed NO (NO) Urine HCG, Qual NEGATIVE (NEGATIVE) 02/09/25 Range/Units 16:30 WBC 9.3 (3.98-10.04) x10^3/uL RBC 4.34 (3.93-5.22) x10^6/uL Hgb 12.0 (11.2-15.7) g/dL Hct 37.4 (34.1-44.9) % MCV 86.2 (79.4-94.8) fL MCH 27.6 (25.6-32.2) pg MCHC 32.1 L (32.2-35.5) g/dL RDW 12.4 (11.7-14.4) % Plt Count 205 (182-369) x10^3/uL MPV 10.3 (9.4-12.3) fL Gran % 73.1 H (34.0-71.1) % Immature Gran % (Auto) 0.2 (0.001-0.429) % Nucleat RBC Rel Count 0.0 (0.00-0.2) % Eos # (Auto) 0.12 (0.04-0.36) x10^3/uL Immature Gran # (Auto) 0.02 (0.001-0.031) x10^3u/L Absolute Lymphs (auto) 1.60 (1.18-3.74) x10^3/uL Absolute Monos (auto) 0.73 (0.24-0.86) x10^3/uL Absolute Nucleated RBC 0.00 (0.00-0.012) x10^3u/L Lymphocytes % 17.3 L (19.3-51.7) % Monocytes % 7.9 (4.7-12.5) % Eosinophils % 1.3 (0.7-5.8) % Basophils % 0.2 (0.1-1.2) % Absolute Granulocytes 6.77 H (1.56-6.13) x10^3/uL Basophils # 0.02 (0.01-0.08) x10^3/uL Sodium (135-145) mmol/L Potassium (3.5-5.1) mmol/L Chloride (98-107) mmol/L Carbon Dioxide (22-30) mmol/L Anion Gap (5-15) MEQ/L BUN (7-17) mg/dL Creatinine (0.52-1.04) mg/dL Estimated GFR ML/MIN Glucose (74-106) mg/dL Calcium (8.4-10.2) mg/dL Total Bilirubin (0.2-1.3) mg/dL AST (14-36) U/L ALT (0-35) U/L Alkaline Phosphatase (38-126) U/L Serum Total Protein (6.3-8.2) g/dL Albumin (3.5-5.0) g/dL Lipase (23-300) U/L Urine Color (Yellow) Urine Appearance (Clear) Urine pH (4.6-8.0) Ur Specific [place] (1.005-1.030) Urine Protein (Negative) Urine Glucose (UA) (Negative) mg/dL Urine Ketones (Negative) Urine Blood (Negative) Urine Nitrite (Negative) Urine Bilirubin (Negative) Urine Urobilinogen (0.2) mg/dL Ur Leukocyte Esterase (Negative) U Hyaline Cast (Auto) (0-2) /LPF Urine Microscopic RBC (0-5) /HPF Urine Microscopic WBC (0-5) /HPF Ur Epithelial Cells (None Seen) /HPF Urine Bacteria (None Seen) /HPF Urine Culture Reflexed (NO) Urine HCG, Qual (NEGATIVE) - Progress Progress: improved Progress Note: 02/09/25 17:36 Differential diagnosis includes head bleed, brain tumor, migraine, atypical headache, cluster headache, other electrolyte abnormality. We obtain basic labs, UA, urine , migraine cocktail, head CT. Patient does have an allergy listed to diphenhydramine. She stated that this is only to IV Benadryl and has been able to take oral Benadryl in the past. Therefore in our migraine cocktail we will give an oral Benadryl. 02/09/25 18:58 Patient's headache improved, now a [address] Head CT pending. Transfer of care to Dr. Montes at 7 PM. He will follow-up on all labs and imaging. He will repeat a neurological exam. Ultimate disposition per these things. Counseled pt/family regarding: lab results, diagnosis, need for follow-up, rad results - Departure Clinical Impression: Headache Condition: Stable Critical Care Time: No Referrals: MAR,MARSHA, DO [Primary Care Provider, [facility]] - Follow up/PCP as directed
[2025-02-09 17:49] LABS: HCG URINE TEST NEGATIVE (NEGATIVE)
[2025-02-09 17:52] LABS: Glucose, Urine Negative (Negative); Protein,Urine Dip Negative (Negative); RBC 0-2 /HPF (0-5); WBC 0-2 /HPF (0-5)
--- NOTE | 2025-02-09 19:32 | XRAY ---
CLINICAL HISTORY: headache COMPARISON: No prior. TECHNIQUE: Axial non-contrast CT scan of the brain was performed from the skull base to the high parietal region. One of the following dose reduction techniques was utilized for this exam: automated exposure control, adjustment of the mA and/or kV according to patient size, or use of iterative reconstruction. CTDI: 53.92, DLP: 1044.86. FINDINGS: Brain Parenchyma: The cerebral hemispheres, cerebellum, and brainstem demonstrate normal attenuation. There is no evidence of acute infarct, hemorrhage, or mass effect. There are no abnormal areas of hypoattenuation or hyperattenuation. Ventricular System: The ventricles are normal in size and configuration. There is no evidence of hydrocephalus or ventricular enlargement. Subarachnoid Spaces: The sulci and cisterns are normal. There is no evidence of subarachnoid hemorrhage or extra-axial fluid collections. Cerebellum and Brainstem: There are no masses, lesions, or areas of abnormal density. Orbits: The globes, optic nerves, and extraocular muscles appear normal. There is no evidence of orbital masses or abnormal density. Sinuses: The paranasal sinuses are clear. There is no evidence of sinusitis or mucosal thickening. Mastoid Air Cells: The mastoid air cells are clear. There is no evidence of mastoiditis. Skull: The skull demonstrates normal morphology. IMPRESSION: 1. Normal CT of the head without contrast. 2. There is no evidence of acute infarct or hemorrhage. Electronically Signed by: Clinton Brasher MD. (02/09/2025 19:31:37 EDT)
--- NOTE | 2025-02-09 20:00 | ERPHSYRPT ---
- History of Present Illness Time Seen by Provider: 02/09/25 15:47 Patient Subjective Stated Complaint: headache off and on for 3 weeks Triage Nursing Assessment: Pt brought to the ER by her , vitals wnl, rates pain as 6/10, pulses normal, skin n/w/d, has seen Dr. Mar and takes Nurteq but it isn't helping now, pt was on Metoprolol for her headaches and had it decreased a couple of weeks ago but it has not improved, nausea, denies vomiting, no difficulty breathing, reports having some visula changes with "black spots", doesn't appear to be in any distress Allergies/Adverse Reactions: diphenhydramine [From Benadryl] Allergy (Verified 02/09/25 15:57) Home Medications: Omeprazole Magnesium 20 mg PO DAILY 10/03/22 [History] Multivitamin 1 tab PO DAILY 06/23/24 [History] Escitalopram Oxalate [Lexapro] 10 mg PO HS 02/09/25 [History] Metoprolol Succinate 25 mg Xl* [Toprol-Xl 25MG Tablets] 25 mg PO DAILY 02/09/25 [History] Rimegepant Sulfate [Nurtec Odt] 75 mg SL .AT ONSET OF HEADACH PRN 02/09/25 [History] Spironolactone [Aldactone] 100 mg PO DAILY 02/09/25 [History] Trazodone HCl 50 mg [Desyrel 50 mg] 50 mg PO HS 02/09/25 [History] Hx Tetanus, Diphtheria Vaccination/Date Given: Yes Hx Influenza Vaccination/Date Given: No Hx Pneumococcal Vaccination/Date Given: No Travel Risk - International Travel Have you traveled outside of the country in past 3 weeks: No - Emerging Infectious Disease Are you exhibiting symptoms associated with any current EIDs: No Symptoms: Abdominal Pain, Diarrhea, Headaches/Body Aches/ - Past Medical History Pertinent Past Medical History: Yes Neurological History: Migraines GI Medical History: GERD Psycho-Social History: Depression Other Medical History: PCOS - Past Surgical History Past Surgical History: Yes Neuro Surgical History: No Pertinent History Cardiac: No Pertinent History Respiratory: No Pertinent History Gastrointestinal: Cholecystectomy Genitourinary: No Pertinent History Musculoskeletal: No Pertinent History Female Surgical History: No Pertinent History Other Surgical History: right index finger repair x 2, cholescy - Female History Hx Last Menstrual Period: 3 weeks ago Hx Now: No - Social History Smoking Status: Never smoker Exposure to second hand smoke: No Drug Use: none - Social Determinants of Health Will the patient participate in the screening: Yes Do you worry about a steady place to live?: No Do you have any problems with any of the following?: No known problems In the past 12 months,have you had to go without utilities?: No Transportation Issues: No Has anyone in your support network made you feel unsafe?: No Have you or anyone in your house had to go w/o enough food: No - Nursing Vital Signs Nursing Vital Signs: Initial Vital Signs Temperature 97.2 F 02/09/25 15:51 Pulse Rate 68 02/09/25 15:51 Blood Pressure 111/64 02/09/25 15:51 O2 Sat by Pulse Oximetry 98 02/09/25 15:51 Pain Scale Pain Intensity 4 - Physical Exam SpO2 Interpretation: normal SpO2: 98 Ordered Tests: Active Orders 24 hr Category Date Time Status IV Insertion STAT Care 02/09/25 16:14 Active HEAD WITHOUT CONTRAST [CT] Stat Exams 02/09/25 16:16 Completed CBC W DIFF Stat Lab 02/09/25 16:30 Completed CMP Stat Lab 02/09/25 16:30 Completed HCG QUALITATIVE, URINE Stat Lab 02/09/25 17:42 Completed LIPASE Stat Lab 02/09/25 16:30 Completed UA W/RFX UR CULTURE Stat Lab 02/09/25 17:39 Completed Medication Summary Discontinued Medications Generic Name Dose Route Start Last Admin Trade Name Karen PRN Reason Stop Dose Admin Diphenhydramine HCl 50 mg 02/09/25 16:15 02/09/25 16:48 Diphenhydramine Hcl 25 Mg Capsule PO 02/09/25 16:16 50 mg STAT ONE Administration Diphenhydramine HCl Confirm 02/09/25 16:42 Diphenhydramine Hcl 25 Mg Capsule Administered 02/09/25 16:43 Dose 50 mg .ROUTE .STK-MED ONE Droperidol 1.25 mg 02/09/25 16:14 02/09/25 16:45 Droperidol 5 Mg/2 Ml Vial IV 02/09/25 16:15 1.25 mg STAT ONE Administration Droperidol Confirm 02/09/25 16:42 Droperidol 5 Mg/2 Ml Vial Administered 02/09/25 16:43 Dose 5 mg .ROUTE .STK-MED ONE Sodium Chloride 1,000 mls @ 999 mls/hr 02/09/25 16:14 02/09/25 17:44 Sodium Chloride 0.9% 1000 Ml IV 02/09/25 17:14 Infused .Q1H1M STA Infusion Sodium Chloride Confirm 02/09/25 16:42 Sodium Chloride 0.9% 1000 Ml Administered 02/09/25 16:43 Dose 1,000 mls @ ud .ROUTE .STK-MED ONE Ketorolac Tromethamine 30 mg 02/09/25 16:14 02/09/25 16:47 Ketorolac Tromethamine 30 Mg/Ml Inj IV 02/09/25 16:15 30 mg STAT ONE Administration Ketorolac Tromethamine Confirm 02/09/25 16:41 Ketorolac Tromethamine 30 Mg/Ml Inj Administered 02/09/25 16:42 Dose 30 mg .ROUTE .STK-MED ONE Lab/Rad Data: Laboratory Result Diagrams 02/09/25 16:30 02/09/25 16:30 Laboratory Results 02/09/25 02/09/25 02/09/25 Range/Units 17:42 17:39 16:30 WBC (3.98-10.04) x10^3/uL RBC (3.93-5.22) x10^6/uL Hgb (11.2-15.7) g/dL Hct (34.1-44.9) % MCV (79.4-94.8) fL MCH (25.6-32.2) pg MCHC (32.2-35.5) g/dL RDW (11.7-14.4) % Plt Count (182-369) x10^3/uL MPV (9.4-12.3) fL Gran % (34.0-71.1) % Immature Gran % (Auto) (0.001-0.429) % Nucleat RBC Rel Count (0.00-0.2) % Eos # (Auto) (0.04-0.36) x10^3/uL Immature Gran # (Auto) (0.001-0.031) x10^3u/L Absolute Lymphs (auto) (1.18-3.74) x10^3/uL Absolute Monos (auto) (0.24-0.86) x10^3/uL Absolute Nucleated RBC (0.00-0.012) x10^3u/L Lymphocytes % (19.3-51.7) % Monocytes % (4.7-12.5) % Eosinophils % (0.7-5.8) % Basophils % (0.1-1.2) % Absolute Granulocytes (1.56-6.13) x10^3/uL Basophils # (0.01-0.08) x10^3/uL Sodium 137 (135-145) mmol/L Potassium 3.9 (3.5-5.1) mmol/L Chloride 104 (98-107) mmol/L Carbon Dioxide 26 (22-30) mmol/L Anion Gap 10.7 (5-15) MEQ/L BUN 17 (7-17) mg/dL Creatinine 1.10 H (0.52-1.04) mg/dL Estimated GFR 68.0 ML/MIN Glucose 100 (74-106) mg/dL Calcium 9.6 (8.4-10.2) mg/dL Total Bilirubin 0.10 L (0.2-1.3) mg/dL AST 29 (14-36) U/L ALT 17 (0-35) U/L Alkaline Phosphatase 78 (38-126) U/L Serum Total Protein 7.4 (6.3-8.2) g/dL Albumin 4.4 (3.5-5.0) g/dL Lipase 88 (23-300) U/L Urine Color Yellow (Yellow) Urine Appearance Clear (Clear) Urine pH 6.5 (4.6-8.0) Ur Specific [place] 1.015 (1.005-1.030) Urine Protein Negative (Negative) Urine Glucose (UA) Negative (Negative) mg/dL Urine Ketones Negative (Negative) Urine Blood Negative (Negative) Urine Nitrite Negative (Negative) Urine Bilirubin Negative (Negative) Urine Urobilinogen 1.0 A (0.2) mg/dL Ur Leukocyte Esterase Negative (Negative) U Hyaline Cast (Auto) NONE SEEN (0-2) /LPF Urine Microscopic RBC 0-2 (0-5) /HPF Urine Microscopic WBC 0-2 (0-5) /HPF Ur Epithelial Cells Rare (None Seen) /HPF Urine Bacteria None Seen (None Seen) /HPF Urine Culture Reflexed NO (NO) Urine HCG, Qual NEGATIVE (NEGATIVE) 02/09/25 Range/Units 16:30 WBC 9.3 (3.98-10.04) x10^3/uL RBC 4.34 (3.93-5.22) x10^6/uL Hgb 12.0 (11.2-15.7) g/dL Hct 37.4 (34.1-44.9) % MCV 86.2 (79.4-94.8) fL MCH 27.6 (25.6-32.2) pg MCHC 32.1 L (32.2-35.5) g/dL RDW 12.4 (11.7-14.4) % Plt Count 205 (182-369) x10^3/uL MPV 10.3 (9.4-12.3) fL Gran % 73.1 H (34.0-71.1) % Immature Gran % (Auto) 0.2 (0.001-0.429) % Nucleat RBC Rel Count 0.0 (0.00-0.2) % Eos # (Auto) 0.12 (0.04-0.36) x10^3/uL Immature Gran # (Auto) 0.02 (0.001-0.031) x10^3u/L Absolute Lymphs (auto) 1.60 (1.18-3.74) x10^3/uL Absolute Monos (auto) 0.73 (0.24-0.86) x10^3/uL Absolute Nucleated RBC 0.00 (0.00-0.012) x10^3u/L Lymphocytes % 17.3 L (19.3-51.7) % Monocytes % 7.9 (4.7-12.5) % Eosinophils % 1.3 (0.7-5.8) % Basophils % 0.2 (0.1-1.2) % Absolute Granulocytes 6.77 H (1.56-6.13) x10^3/uL Basophils # 0.02 (0.01-0.08) x10^3/uL Sodium (135-145) mmol/L Potassium (3.5-5.1) mmol/L Chloride (98-107) mmol/L Carbon Dioxide (22-30) mmol/L Anion Gap (5-15) MEQ/L BUN (7-17) mg/dL Creatinine (0.52-1.04) mg/dL Estimated GFR ML/MIN Glucose (74-106) mg/dL Calcium (8.4-10.2) mg/dL Total Bilirubin (0.2-1.3) mg/dL AST (14-36) U/L ALT (0-35) U/L Alkaline Phosphatase (38-126) U/L Serum Total Protein (6.3-8.2) g/dL Albumin (3.5-5.0) g/dL Lipase (23-300) U/L Urine Color (Yellow) Urine Appearance (Clear) Urine pH (4.6-8.0) Ur Specific [place] (1.005-1.030) Urine Protein (Negative) Urine Glucose (UA) (Negative) mg/dL Urine Ketones (Negative) Urine Blood (Negative) Urine Nitrite (Negative) Urine Bilirubin (Negative) Urine Urobilinogen (0.2) mg/dL Ur Leukocyte Esterase (Negative) U Hyaline Cast (Auto) (0-2) /LPF Urine Microscopic RBC (0-5) /HPF Urine Microscopic WBC (0-5) /HPF Ur Epithelial Cells (None Seen) /HPF Urine Bacteria (None Seen) /HPF Urine Culture Reflexed (NO) Urine HCG, Qual (NEGATIVE) - Progress Progress: improved Progress Note: 02/09/25 19:[address] Underwood, patient is clinically improved, discussed CT results which were normal, she will continue her home medications and follow-up with her primary care doctor - Departure Departure Disposition: Home Clinical Impression: Headache Qualifiers: Headache chronicity pattern: acute headache Intractability: not intractable Condition: Stable Critical Care Time: No Referrals: MARSHA MAR DO [Primary Care Provider, [facility]] - Follow up with PCP 7 days Instructions: Migraine in adults Additional Instructions: Continue home medications, follow-up to primary care doctor (call for appointment)
[2025-02-09 20:15] VITALS: BP 118/74; PULSE 85; RESP 18
== END 2025-02-09 20:16 | disposition home or self-care (01) ==
LOC: ED 15:43
DX: R51.9 Headache, unspecified (principal); Z79.899 Other long term (current) drug therapy